=== PATIENT | male | born 1945 | race Caucasian/White ===

== ENCOUNTER 2024-04-08 06:39 | Observation (INO) ==
--- NOTE | 2024-04-01 14:57 | Anesthesiology Consultation ---
Date of Service April 01, 2024 Assessment & Plan (1) Encounter for pre-operative examination: - Infectious disease screening: Per assessment on 04/01/24- No known recent infectious disease contacts or current infectious disease symptoms. Patient at [facility]. Will need preop Covid testing per protocol (will need to order DOS if not done prior per protocol). - Outpatient joint assessment: Pt currently scheduled for inpatient pathway. If surgeon requests review for outpatient joint pathway, patient is not recommended candidate for outpatient joint program from anesthesia standpoint based on available information. - Cardiology visit (03/19/24): "Mr. Pizano is a 78-year-old male with a history of GERD, BPH, Rhinitis, and Osteoarthritis who presents today for Preoperative Cardiac Evaluation. He is scheduled undergo a Right Total Hip Arthroplasty with Dr. Cruz on 04/08/24. Patient denies any prior cardiac history or prior cardiac events. Up until 2 months ago he was routinely walking around the nursing home yard for exercise and this will be followed by between 300 to 350 pushups (done in sets). He has been bothered by his right groin and hip pain over the past at least 5 years, but he was able to stay very active up until a couple of months ago. Patient has not experienced any limiting cardiopulmonary symptoms at any time. Patient has not experienced any angina pectoris or anginal equivalent symptoms, overt signs or symptoms heart failure, nor has he had any symptoms suggestive of dysrhythmia. He does not experience claudication with his day-to-day activities. He has never had any focal neurologic symptoms suggestive of stroke or mini stroke.. Based on his functional status up until 2 months ago without limiting cardiopulmonary symptoms, normal EKG tracing, and no prior cardiac history -- patient is an acceptable surgical risk to proceed with surgery as planned. There is no need for further cardiac or ischemic workup at this time." Chart Review Chart Review: Acceptable Risk for Surgery (pending evaluation DOS) and Patient NOT seen in Pre Admission Testing History Surgery Operation Date: 04/08/24 11:10 Proposed Procedures p Left Total Hip Arthroplasty - Sandoval Cruz MD Height/Weight Height: 5 ft 10 in Weight: 73.028 kg Allergies Allergy/AdvReac Type Severity Reaction Status Date / Time No Known Drug Allergies Allergy Verified 03/19/24 13:13 Medications Home Medications Medication Instructions Recorded Confirmed Last Taken montelukast 10 mg tablet 10 mg PO QPM 03/18/24 04/01/24 Unknown (Singulair) omeprazole 20 mg tablet,delayed 20 mg PO DAILY 03/18/24 04/01/24 Unknown release tamsulosin 0.4 mg capsule 0.4 mg PO DAILY 03/18/24 04/01/24 Unknown diclofenac sodium 100 mg 100 mg PO BID PRN Pain 04/01/24 04/01/24 Unknown tablet,extended release 24 hr lidocaine 5 % topical ointment 1 applic topical BID PRN Pain 04/01/24 04/01/24 Unknown sulfamethoxazole 800 1 tab PO BID 04/01/24 04/01/24 Unknown mg-trimethoprim 160 mg tablet (Bactrim DS) Past Medical History Medical History Allergic rhinitis BPH (benign prostatic hyperplasia) Eczema GERD (gastroesophageal reflux disease) Inmate in correctional facility [facility] Osteoarthritis Pain in right hip Past Surgical History Surgical History Surgical history unknown Social History Smoking Status: Unknown if ever smoked Hx Alcohol Use: No (unknown) Hx Substance Use: No substance use type: unknown Testing Laboratory Results 03/01/24 WBC 7.29 H/H 11.3/33.9 PLATELETS 196 SODIUM 140 POTASSIUM 3.8 CHLORIDE 105 CO2 32 BUN 34 CREATININE 1.09 GLUCOSE 84 PT 11.1 PTT 29.8 INR 1.00 Electrocardiogram Date: 03/19/24 Findings: + NSR @ (60) Chest X-Ray Date: 03/01/24 Findings: + NAD
[~2024-04-08 06:39] MED LIST: ROPIVACAINE 0.5% 5 MG/ML 30 ML VIAL ONE
[2024-04-08] MEDS: CeleBREX 200 MG CAP PO SCH (07:31)
[2024-04-08] MEDS: traMADol HCL 50 MG TABLET PO SCH (07:31)
[2024-04-08] MEDS: Scopolamine 1 MG TDSY TD SCH (07:31)
[2024-04-08] MEDS: FAMOTIDINE 20 MG TAB PO SCH (07:31)
[2024-04-08] MEDS: LR 500ML BOLUS, THEN 15ML/HR IV SCH (07:31)
[2024-04-08] MEDS: ACETAMINOPHEN 500 MG TAB PO SCH ×2 (07:31→14:49)
[2024-04-08] MEDS: LR 60ML/HR IV SCH (07:32)
[2024-04-08] MEDS ORDERED: MIDAZOLAM HCL 1 MG/ML 2ML VIAL ONE (07:42)
[2024-04-08] MEDS ORDERED: fentaNYL citrate PF 100 MCG/2 ML VIAL ONE (07:42)
[2024-04-08] MEDS ORDERED: PROPOFOL IV EMULSION 10 MG/ML 20 ML VIAL IV ONE (07:44)
[2024-04-08] MEDS: dexAMETHasone**PF** 10 MG/ML VIAL IV SCH (07:47)
--- NOTE | 2024-04-08 08:16 | Anesthesiology Consultation ---
Date of Service April 08, 2024 Assessment & Plan (1) Encounter for pre-operative examination: Chart Review Chart Review: Acceptable Risk for Surgery History Surgery Operation Date: 04/08/24 09:05 Proposed Procedures p Right Total Hip Arthroplasty - Sandoval Cruz MD Height/Weight Height: 5 ft 10 in Weight: 73.028 kg Allergies Allergy/AdvReac Type Severity Reaction Status Date / Time No Known Drug Allergies Allergy Verified 04/08/24 07:03 Medications Home Medications Medication Instructions Recorded Confirmed Last Taken montelukast 10 mg tablet 10 mg PO QPM 03/18/24 04/08/24 Unknown (Singulair) omeprazole 20 mg tablet,delayed 20 mg PO DAILY 03/18/24 04/08/24 04/06/24 20:00 release tamsulosin 0.4 mg capsule 0.4 mg PO DAILY 03/18/24 04/08/24 04/06/24 diclofenac sodium 100 mg 100 mg PO BID PRN Pain 04/01/24 04/08/24 03/25/24 tablet,extended release 24 hr lidocaine 5 % topical ointment 1 applic topical BID PRN Pain 04/01/24 04/08/24 04/06/24 Active Medications Generic Name Dose Route Start Last Admin Trade Name Freq PRN Reason Stop Dose Admin Acetaminophen 1,000 mg 04/08/24 06:00 04/08/24 07:31 Acetaminophen 500 Mg Tab PO 04/08/24 18:00 1,000 mg PREOP PINA Administration Celecoxib 200 mg 04/08/24 06:00 04/08/24 07:31 Celebrex 200 Mg Cap PO 04/08/24 18:00 200 mg PREOP PINA Administration Dexamethasone Sodium Phosphate 10 mg 04/08/24 06:00 04/08/24 07:47 DexamethasonePf 10 Mg/Ml Vial IV 04/08/24 18:00 10 mg PREOP PINA Administration Famotidine 20 mg 04/08/24 06:00 04/08/24 07:31 Famotidine 20 Mg Tab PO 04/08/24 18:00 20 mg PREOP PINA Administration Lactated Ringer's 1,000 mls @ 15 mls/hr 04/08/24 06:00 04/08/24 07:49 Lr IV 04/08/24 18:00 0 mls/hr .Q24H PINA Infusion Lactated Ringer's 1,000 mls @ 60 mls/hr 04/08/24 06:00 04/08/24 07:32 Lr IV 04/08/24 22:39 Not Given .[id number] PINA Scopolamine 1 patch 04/08/24 06:00 04/08/24 07:31 Scopolamine 1 Mg Tdsy TD 04/08/24 18:00 1 patch PREOP PINA Administration Tramadol HCl 50 mg 04/08/24 06:00 04/08/24 07:31 Tramadol Hcl 50 Mg Tablet PO 04/08/24 18:00 50 mg PREOP PINA Administration NPO Date Last Intake of Fluids: 04/07/24 Time Last Intake of Fluids: 17:00 Date Last Intake of Solids: 04/07/24 Time Last Intake of Solids: 17:00 Past Medical History Medical History GERD (gastroesophageal reflux disease) Pain in right hip Allergic rhinitis Inmate in correctional facility [facility] Osteoarthritis Eczema BPH (benign prostatic hyperplasia) Past Surgical History Surgical History Hx of tonsillectomy History of nasal surgery Surgical history unknown Social History Smoking Status: Unknown if ever smoked Hx Alcohol Use: No (unknown) Hx Substance Use: No substance use type: unknown Physical Exam Vital Signs Last Vital Signs Temp 36.8 C 04/08/24 07:06 Pulse 62 04/08/24 07:06 Resp 18 04/08/24 07:06 BP 140/72 04/08/24 07:06 Pulse Ox 95 04/08/24 07:06 O2 Del Method Room Air 04/08/24 07:06 Testing Laboratory Results Blood Type O Positive 04/08/24 07:02 Antibody Screen NEGATIVE 04/08/24 07:02 Hb 11.3 Plt 196 K 3.8 Creat 1.09 Electrocardiogram Date: 03/19/24 Findings: + NSR @ (60)
[2024-04-08] MEDS ORDERED: KETOROLAC 30 MG/ML VIAL IV PRN (08:20)
[2024-04-08] MEDS ORDERED: ONDANSETRON INJ 2 MG/ML 2 ML VIAL IV PRN ×2 (08:20→10:59)
[2024-04-08] MEDS ORDERED: ATROPINE SULFATE 0.1 MG/ML 10ML SYR IV PRN (08:20)
[2024-04-08] MEDS ORDERED: ePHEDrine sulfate 50 MG/ML AMP IV PRN (08:20)
--- NOTE | 2024-04-08 08:34 | History & Physical Bridge Note ---
Date of Service April 08, 2024 History & Physical Bridge Note I have examined the patient, reviewed the History & Physical and in the interval since the performance of the History & Physical I have noted the following changes of clinical significance: no changes noted
[2024-04-08] MEDS: TRANEXAMIC ACID 1,000 MG **IV Pre-op IV SCH (08:54)
[2024-04-08] MEDS: ceFAZolin 2000MG 2,000 MG/15 ML SYR IV SCH ×2 (09:05→16:53)
[2024-04-08] MEDS ORDERED: LIDOCAINE 2% 2 ML VIAL/AMP(20MG/ML) INFIL ONE (09:27)
[2024-04-08] MEDS ORDERED: ePHEDrine sulfate 50 MG/ML AMP ONE (09:33)
[2024-04-08] MEDS ORDERED: WATER, STERILE FOR INJ 10 ML VIAL ONE (09:34)
[2024-04-08] MEDS ORDERED: PHENYLEPHRINE 100MCG/ML 5ML SYR ONE (09:36)
[2024-04-08] MEDS: ORTHO JOINT ANESTHETIC ONE (09:48)
[2024-04-08] MEDS: TRANEXAMIC ACID 1,000 MG **IV Intra-op IV SCH (10:22)
[2024-04-08] MEDS: ROPIV 0.5% 246mg, Ketorolac 30mg, EPINEPHrine 0.5mg in NSS INFIL SCH (10:30)
--- NOTE | 2024-04-08 10:48 | Operative Report ---
Post Operative Report Pre & Post Diagnosis Operation Date: 04/08/24 09:05 Pre-Op Diagnosis: Right Hip Osteoarthritis Post-Op Diagnosis: Right Hip Osteoarthritis I identified the patient and participated in the time-out.: Yes Procedure Operation Date: 04/08/24 09:05 Actual Procedures p Right Total Hip Arthroplasty(Right) - Sandoval Cruz MD Surgeon Sandoval Cruz MD Supervisor Floor Assembly Lanre Dunbar DO and TILA Branham PA-C. Estimated Blood Loss 50 Findings Consistent with Post-Op Diagnosis Specimens Right femoral head Anesthesia Type Spinal MAC Complications The tip (about 1.5 cm) of a drill bit broke in the greater trochanter next to the femoral implant. The hip was carefully inspected to ensure that the broken drill bit tip was completely located within the bone. This was confirmed with inspection, palpation, and an intraoperative x-ray. This is unlikely to alter the patient's postoperative recovery. No changes to the standard postoperative instructions. Indications 78-year-old male with right hip osteoarthritis refractory to conservative m anagement. X-rays demonstrate [id number] disease with subchondral sclerosis and cyst formation. I had a long discussion with him about the risks and benefits of surgery, alternatives to surgery, and expected outcomes. After reviewing all these he elected to proceed with surgery. All questions were answered. Informed consent was signed. Description of Procedure Patient was identified in the preoperative holding area where the surgical site, right hip, was marked. A spinal anesthetic was placed, then the patient was brought back to the main operating room, placed in the operating table and moved into the lateral decubitus position. Axillary roll was placed. All bony prominences were padded. Perioperative antibiotics and tranexamic acid 1 gram IV were administered. The operative extremity was prepped and draped in the normal sterile fashion. Prior to incision a multidisciplinary timeout was called. All in the room were in agreement. We began by making an incision for a posterior approach to the hip. We dissected down through subcutaneous tissues to the level of the fascia. The fascia was incised in line with the incision. Charnley bow was placed. Fatty tissue was reflected posteriorly off the back of the greater trochanter to expose the piriformis and short external rotators of the hip. Quadratus femoris was taken off the femur subperiosteally. The piriformis and short external rotators were dissected off the posterior aspect of the hip. A box cut was made in the capsule. Inferior hip capsule was released off the femur. The femoral head was dislocated. The femoral neck cut was made at our preoperative template. The acetabulum was then exposed. The labrum was sharply excised. Contents of the cotyloid fossa were removed with electrocautery. We then began reaming at a size 8 mm less than our preoperative template. We reamed up by 1 [address] the way up to a size 58 mm cup. This gave us good bleeding cancellus bone circumferentially. The acetabulum was then irrigated out and dried. The real [place] Gription cup was then impacted down into position with 45 degrees of lateral opening and 25 degrees of anteversion. A single cancellous bone screw was placed up into the ilium. Excellent fixation was obtained. A trial liner for a 36 mm femoral head was then placed. Next we turned our attention to the femur. The lateral neck was removed with a box osteotome. Intramedullary guide was used to establish the intramedullary canal. We then broached all the way up to a size 7. We began trialing with a high offset neck and a +1.5 head. Hip was reduced. Leg lengths were symmetric. The hip was stable in extension and external rotation, and stable in the sleeper position. At 90 degrees of hip flexion the hip could be internally rotated 50 degrees before levering out of the cup. I was very happy with the stability exam. Therefore the hip was dislocated and the femoral trial was removed. The acetabulum was re-exposed, and the trial liner was removed. Saulsbury hole eliminator screw was placed. An Altrx polyethylene liner for a 36 mm femoral head was then impacted into the shell. The locking mechanism was checked to ensure that it had engaged which it had. The femur was re-exposed. The femoral canal was irrigated and dried. The real Actis femoral stem was opened up. This was impacted down into position. The femoral head was opened up and gently impacted down onto the trunnion. The hip was atraumatically reduced. Another 1 gram of IV tranexamic acid was started prior to closure. The wound was irrigated out with sterile Betadine solution. The periarticular injection cocktail was then placed. The short external rotators, piriformis, and transport corps officer ior capsule were repaired through drill holes in the greater trochanter using #2 Vicryl. While drilling the holes through the greater trochanter the tip of the drill bit broke off as it contacted the shoulder of the femoral stem. The hip was atraumatically dislocated when carefully inspected all around the greater trochanter and proximal femur and were unable to visualize or palpate the drill bit. We expected that the tip of the drill bit had broken off within the bone. An AP pelvis x-ray was obtained which confirmed the intraosseous location of the tip of the drill bit in the greater trochanter. This was unlikely to change the patient's postoperative course as the tip drill bit and the bone should not bother him. No changes to routine postoperative instructions. Next, the fascia was run with a looped #1 PDS. The subcutaneous layer was closed with #1 PDS. The dermal layer was closed with 2-0 Vicryl. Zip line was used for the skin followed by a Silverlon dressing. A compressive dressing was then placed. The patient was then rolled supine. Leg lengths were rechecked and were symmetric. An abduction pillow was placed. Sedation was lifted and the patient was transferred to the recovery room in stable condition. Summary of implants: Depuy [place] Gription Acetabular Shell Sector Cup, 58 mm outer diameter [place] Cancellous bone screw, 6.5 x 30 mm Saulsbury hole eliminator [place] Altrx Polyethylene Acetabular Liner, Neutral, with a 36 mm inner diameter DePuy Actis collared cementless Femoral stem, 12/14 taper, size 7 high offset 36 mm ceramic femoral head with +1.5 offset Postoperative course: Patient will be admitted overnight from the recovery room. Patient will be weightbearing as tolerated with posterior hip precautions. Aspirin for DVT prophylaxis I attest to the content of the Intraoperative Record and any orders documented therein. Any exceptions are noted below.
--- NOTE | 2024-04-08 10:49 | XRay Report ---
XR pelvis 1-2V routine HISTORY: 78 years-old Male INTRAOPERATIVE X-RAY right hip arthroplasty COMPARISON: Pelvis radiograph 03/17/2024 TECHNIQUE: Crosstable lateral view of the pelvis. FINDINGS: Right hip arthroplasty demonstrates satisfactory alignment. Expected postoperative soft tissue swelli ng and deep tissue air. Mild left hip osteoarthritis. No acute fracture or dislocation identified. A small linear metallic density focus projects over the right greater trochanter. IMPRESSION: Satisfactory alignment of the right hip arthroplasty. ACT 112: Negative or not required by law. The above report was generated using voice recognition software. It may contain grammatical, syntax o r spelling errors. Electronically signed by: Azeem Sawyer M.D. 04/08/2024 10:48 AM
[2024-04-08] MEDS ORDERED: bisacodyL 10 MG SUPP PR PRN (10:59)
[2024-04-08] MEDS ORDERED: ALUMINUM/MAGNESIUM SUSP 30 ML UDC PO PRN (10:59)
[2024-04-08] MEDS ORDERED: METOCLOPRAMIDE HCL INJ 5 MG/ML 2 ML VIAL IV PRN (10:59)
[2024-04-08] MEDS ORDERED: diphenhydrAMINE 50 MG/ML VIAL IV PRN (10:59)
[2024-04-08] MEDS ORDERED: MAGNESIUM HYDROXIDE SUSP 30 ML UDC PO PRN (10:59)
[2024-04-08] MEDS ORDERED: NALOXONE HCL 0.4 MG/1 ML VIAL/CARP IV PRN (10:59)
[2024-04-08] MEDS ORDERED: oxyCODONE HCL IR 5 MG TAB (IMMEDIATE RELEASE) PO PRN (10:59)
[2024-04-08] MEDS ORDERED: TAMSULOSIN HCL 0.4 MG CAP PO PRN (10:59)
--- NOTE | 2024-04-08 10:59 | Operative Report ---
Post Operative Report Pre & Post Diagnosis Operation Date: 04/08/24 09:05 Pre-Op Diagnosis: Right Hip Osteoarthritis Post-Op Diagnosis: Right Hip Osteoarthritis I identified the patient and participated in the time-out.: Yes Procedure Operation Date: 04/08/24 09:05 Actual Procedures p Right Total Hip Arthroplasty(Right) - Sandoval Cruz MD Surgeon Sandoval Cruz MD Medical Transcription Supervisor Lanre Dunbar DO and TILA Branham PA-C. Estimated Blood Loss 50 Findings Consistent with Post-Op Diagnosis Specimens Femoral head Description of Procedure I was present during the entire case assisting with positioning, prepping, draping, wound retraction, wound closure, dressing and abduction pillow placement. Fellow also present. I served as an extra set of hands during the case. Please see Dr. Cruz procedure note for specifics of the case. I attest to the content of the Intraoperative Record and any orders documented therein. Any exceptions are noted below.
[2024-04-08] MEDS ORDERED: DICLOFENAC SODIUM 100 MG PO PRN (11:01)
--- NOTE | 2024-04-08 11:02 | Operative Report ---
Post Operative Report Pre & Post Diagnosis Operation Date: 04/08/24 09:05 Pre-Op Diagnosis: Right Hip Osteoarthritis Post-Op Diagnosis: Right Hip Osteoarthritis I identified the patient and participated in the time-out.: Yes Procedure Operation Date: 04/08/24 09:05 Actual Procedures p Right Total Hip Arthroplasty(Right) - Sandoval Cruz MD Surgeon Sandoval Cruz MD Stonework Supervisor Lanre Dunbar DO and TILA Branham PA-C. Estimated Blood Loss 50 Findings Consistent with Post-Op Diagnosis Specimens Femoral head Description of Procedure Patient was brought to the operative suite where he underwent sedation per anesthesia. He was placed in left lateral decubitus position. The right lower extremity was prepped and draped in the usual sterile fashion. A surgical timeout was performed. The patient underwent a right total hip arthroplasty; please see Dr. Cruz's operative report for full details. I was present and assisted with patient positioning, limb positioning, soft tissue retraction, hardware placement, wound closure, postoperative dressing placement. The patient was awakened and taken to the recovery room in stable condition. I attest to the content of the Intraoperative Record and any orders documented therein. Any exceptions are noted below.
--- NOTE | 2024-04-08 11:48 | XRay Report ---
XR pelvis 1-2V routine HISTORY: 78 years-old Male In PACU - Post Surgical COMPARISON: Pelvis radiograph of same day at 10:25 AM TECHNIQUE: AP view of the pelvis FINDINGS: Right hip arthroplasty demonstrates satisfactory alignment. Expected postoperative soft tissue swelli ng and deep tissue air. Mild left hip osteoarthritis. No acute fracture or dislocation identified. 6 mm linear metallic density focus projects over the right greater trochanter. IMPRESSION: 1. Satisfactory alignment of the right hip arthroplasty. 2. Indeterminate 6 mm metallic density focus projects over the greater trochanter. ACT 112: Negative or not required by law. The above report was generated using voice recognition software. It may contain grammatical, syntax o r spelling errors. Electronically signed by: Azeem Sawyer M.D. 04/08/2024 11:46 AM
[2024-04-08] MEDS: HYDROmorphone INJ 1 MG/ML SYRINGE IV PRN (12:07)
[2024-04-08] MEDS: KETOROLAC TROMETHAMINE 15 MG/ML VIAL IV SCH (13:01)
--- NOTE | 2024-04-08 13:45 | Anesthesiology Progress Note ---
Date of Service April 08, 2024 Anesthesia Post Procedure Vital Signs Vital Signs: Temp Pulse Pulse Resp BP BP Pulse Ox 04/08/24 13:04 36.3 C L 73 16 124/56 L 96 04/08/24 12:48 36.5 C 77 16 124/54 L 94 04/08/24 12:10 36.4 C L 68 15 116/55 L 95 04/08/24 11:55 66 17 115/52 L 95 04/08/24 11:40 68 17 109/54 L 95 04/08/24 11:25 67 17 117/53 L 96 04/08/24 11:15 36.2 C L 68 18 117/54 L 96 04/08/24 11:05 69 18 112/51 L 98 04/08/24 10:56 36.2 C L 66 18 111/52 L 95 04/08/24 07:06 36.8 C 62 18 140/72 95 O2 Del Method O2 Flow Rate 04/08/24 13:04 Nasal Cannula 2 04/08/24 12:48 Nasal Cannula 04/08/24 12:10 Nasal Cannula 2 04/08/24 11:55 Room Air 04/08/24 11:40 Room Air 04/08/24 11:25 Room Air 04/08/24 11:15 Room Air 04/08/24 11:05 Oxymask 5 04/08/24 10:56 Oxymask 5 04/08/24 07:06 Room Air Pain Intensity Right Hip: Pain Intensity: 4 Transfer of Care Handoff Completed per policy Notes Mental Status: alert / awake / arousable Patient Amnestic to Procedure: Yes Nausea / Vomiting: adequately controlled Pain: adequately controlled Airway Patency, RR, SpO2: stable & adequate BP & HR: stable & adequate Hydration State: stable & adequate Neuraxial Anesthesia: was administered and sensory block is resolving Anesthetic Complications: no major complications apparent
[2024-04-08] MEDS: Scopolamine CHECK PATCH PLACEMENT SCH (16:49)
[2024-04-08] MEDS: DOCUSATE SODIUM 100 MG CAP PO SCH (21:34)
[2024-04-08] MEDS: MONTELUKAST SODIUM 10 MG TABLET PO SCH (21:34)
[2024-04-08] MEDS: SENNA 8.6 MG TAB PO SCH (21:34)
[2024-04-08 23:24] VITALS: RESP 16
--- OUTSIDE RECORDS SUMMARY | 2024-04-09 01:34 | External Medical Summary | Continuity of Care Document ---
Author Name Unknown Organization [facility] [address] [id number] Address [facility] [place], [place] [id number] Encounter [facility] FINNBR [id number] Date(s): 03/17/24 - 03/17/24 [facility] [address] [facility] [address] [facility] [address] [place] [id number] Encounter Diagnosis Preop examination(Discharge Diagnosis) - 03/17/24 Osteoarthritis of right hip(Discharge Diagnosis) - 03/17/24 Discharge Disposition: Home or Self Care Attending Physician: ANA Branham Dennis Referring Physician: MD Nancy, Sandoval Casper Allergies, Adverse Reactions, Alerts No Known Allergies Medications diclofenac Start: 10/10/23 2:10:00 PM EDT Start Date: 10/10/23 Status: Ordered Flomax Start: 03/17/24 9:53:00 AM EDT Start Date: 03/17/24 Status: Ordered montelukast 10 mg oral tablet Start: 04/25/22 10:41:00 AM EST, 1 tab, PO, qPM Start Date: 04/25/22 Status: Ordered omeprazole 20 mg oral delayed release capsule Start: 04/25/22 10:41:00 AM EST, 1 cap, PO, Daily Start Date: 04/25/22 Status: Ordered Singulair Start: 03/17/24 9:53:00 AM EDT Start Date: 03/17/24 Status: Ordered tamsulosin 0.4 mg oral capsule Start: 04/25/22 10:41:00 AM EST, 1 cap, PO, Daily Start Date: 04/25/22 Status: Ordered Mental Status 03/17/24 Barriers to Learning one year None evide nt Mandatory Health Literacy Documentation Yes Health Literacy Communication Barriers N ever Primary Language Maldivian Problem List Condition Confirmation Course Effective Dates Status Health St atus Informant BPH without urinary obstruction Confirmed Active Eczema Confirmed Active GERD without esophagitis Confirmed Active Encounter for exam following cancer surgery Confirmed Active History of skin cancer Confirmed Active Rhinitis Confirmed Active Seborrheic keratosis Confirmed Active Diagnosis Diagnosis Type Effective Dates Health Status Clinical Service Informant Osteoarthritis of right hip Discharge Diagnosis 03/17/24 Preop examination Discharge Diagnosis 03/17/24 Vital Signs Most recent to oldest [Reference Range]: 1 Height 177.5 cm (03/17/24 9:54 AM) Patient Weight 76.6 kg (03/17/24 9:54 AM) Body Mass Index 24.31 kg/m2 (03/17/24 9:54 AM) Heart Rate 65 bpm (03/17/24 9:54 AM) Blood Pressure 136/70mmHg (03/17/24 9:54 AM) Cuff Pulse Pressure 66 mmHg (03/17/24 9:54 AM) Social History Social History Type Response Smoking Status Never smoked cigaret jaz Sex Male Sex Representation Male (finding) Pre-OP H & P * ANA Branham, Sharath: PERFORM Event Display: Pre-OP H & P Authored Date: [id number] PRE-OPERATIVE HISTORY AND PHYSICAL Name: JUDY PATEL Patient Number: [id number] : 1945 Date of Service: 03/17/2024 PRE-OP Diagnosis: Right hip osteoarthritis Planned Procedure: Right Total Hip Arthroplasty Chief Complaint: Right hip pain History of Present Illness (including history relevant to procedure): This 78-year-old male inmate from [facility] presents to the clinic today for his preoperative history and physical. Patient complains of a 5 to 6-year history of significant right hip pain that is localized to his groin and lateral hip. He states his severely affecting his ability to ambulate in a normal fashion. He feels that the range of motion of his hip is very limited as well. Patient states that he is gait abnormality is starting to cause pain in his left leg. He states that he manages his pain with diclofenac sodium. Patient is electing to proceed with surgical intervention at this time. Review Of Systems: 12 point review of systems is performed and is unremarkable except for those things stated in the HPI and past medical history. Past Medical History: Problems: Seborrheic keratosis Encounter for exam following cancer surgery History of skin cancer BPH without urinary obstruction Eczema GERD without esophagitis Rhinitis Procedure History Procedure Procedure Date Comments Tonsillectomy Allergies and Sensitivities: NKA No Known Medication Allergies Current Home Meds: (Last Updated 03/17 09:53) diclofenac montelukast (Singulair) montelukast (montelukast 10 mg oral tablet) 10 mg PO qPM omeprazole (omeprazole 20 mg oral delayed release capsule) 20 mg PO Daily tamSULOsin (tamsulosin 0.4 mg oral capsule) 0.4 mg PO Daily tamsulosin (Flomax) Vitals: Last Updated 03/17/24 09:54 Weights: Last Updated 03/17/24:54 Date Temp Pulse BP RR SpO2 FIO2 Date Wt(kg) Wt(lb) 03/17 09: 65 136/70 98 03/17 76.6 169 03/17 09: 76.6 169 24 Hr Tmax: No Data Available Initial Wt: 03/17 76.6 kg 169 lb Physical Exam: (relevant to the procedure, including heart and lung evaluation) General: Alert and oriented x 3 with proper grooming and hygiene Eyes: Pupils are equal reactive to light with accommodation. Extraocular movements are intact Throat: Posterior oropharynx is clear with absence of edema, erythema or exudate Cardiac: Regular rate and rhythm with no murmurs or gallops appreciated Lungs: Clear to auscultation throughout with no wheezing, rales or rhonchi Abdomen: Nonobese, nondistended, nontender with NABS Extremities: Right hip flexion is limited to 100 degrees, internal rotation to 0 degrees external rotation to 30 degrees. Straight leg raise test causes discomfort in the groin. Scour and impingementtests are both positive. Patient walks with a significant antalgic gait. Neuro: Cranial nerves II through XII are intact no motor or sensory deficit Skin: Normal in appearance with no open skin areas or discharge Studies (relevant to the procedure): 3(AP pelvis, cross table lateral, and false profile) views of theright hip show [id number] arthritis severe with subchondral cysts and sclerosis. No fractures are visible. Plan: Patient is scheduled to undergo this procedure at the [facility] with a 23-hour observation admission with Dr. Cruz on March. Risks and complications of the procedure such as: Infection, bleeding, pain, scarring, nerve blood vessel damage, weakness, wound problems, stiffness, incomplete relief of symptoms, hardware failure, hardware loosening, wear, fracture, tendon or ligament injury, dislocation, leg length inequality, blood clots, Embolism,heart attack, stroke and were explained to the patient at his visit today. Informed consent to perform the procedure was obtained. Patient states that he has obtained a CBC with differential, complete metabolic panel, PT/INR, blood type and screen, urinalysis, urine culture and sensitivity, EKG, chest x-ray and a nasal culture for MRSA at the present. Patient will also need preoperative medical clearance from their primary care provider and jewish thought professor. Patient states that he will reviewthe exercises in the packet provided and I did provide him with an order to do physical therapy 1 atherapist is available 1 time per month at the [facility]. Patient will need a walker, raised toilet seat, shower chair and a hip kit. During today's visit we reviewed the total hip packet as well as precautions. We discussed discharge planning from the hospital. I advised the patient that upon discharge from hospital we will prescribe a narcotic pain medication and anti-inflammatory. Patient will also be on an 81 mg aspirin twice daily for blood clot prevention. Patient will be scheduled for2-week postoperative follow-up visit with myself on April 21. This chart was completed utilizing [employer] voice recognition software. Grammatical errors,random word insertions, pronoun errors, and in complete sentences are an occasional consequence of the system. Any questions or concerns about the content, text, or information contained within the body of this dictation should be addressed directly to the physician for clarification. Electronic Signature on File Electronically Reviewed/Signed by: Sharath Branham PA-C Author Signature Dt/Tm:03/17/2024 03:21 PM Division of Sports Medicine Electronically Reviewed/Signed by: MD Maxi Carrera Signature Dt/Tm: 03/18/2024 10:53AM Division of Sports Medicine [place]
[2024-04-09 06:43] LABS: Basophils # (auto) 0.03 K/uL (0.00-0.20); Basophils % (auto) 0.3 %; Hematocrit (blood only) 27.6 % (42.0-52.0); Hemoglobin 9.3 g/dl (14.0-18.0); Immature Granulocytes # (auto) 0.05 K/uL (0.01-0.20); Immature Granulocytes % (auto) 0.5 %; Lymphocytes # (auto) 1.25 K/uL (1.20-3.40); Lymphocytes % (auto) 11.9 %; Mean Corpuscular Hemoglobin 32.3 pg (25.0-34.0); Mean Corpuscular Hgb Conc 33.7 g/dL (32.0-36.0); Mean Corpuscular Volume 95.8 fL (80.0-100.0); Mean Platelet Volume 10.2 fL (9.4-12.4); Monocytes # (auto) 1.17 K/uL (0.11-0.59); Monocytes % (auto) 11.2 %; Neutrophils # (auto) 7.99 K/uL (1.40-6.50); Neutrophils % (auto) 76.1 %; Platelet Count 202 K/uL (130-400); RDW Coefficient of Variation 12.1 % (11.5-14.5); RDW Standard Deviation 42.5 fL (36.4-46.3); Red Blood Count 2.88 M/uL (4.70-6.10); White Blood Count 10.49 K/ul (4.8-10.8)
[2024-04-09 06:58] LABS: Calcium 8.8 mg/dl (8.6-10.3); Creatinine Clr Calc Pharmacy 41.8 ml/min; Potassium 4.9 mmol/L (3.5-5.1)
[2024-04-09 07:30] VITALS: PULSE 58; TEMP 97.7; O2SAT 95
[2024-04-09] MEDS: dexAMETHasone 4 MG TAB PO SCH (09:02)
[2024-04-09] MEDS: PANTOprazole 40 MG TAB PO SCH (09:03)
[2024-04-09] MEDS: ASPIRIN 81 MG ECTAB PO SCH (09:03)
[2024-04-09] MEDS: MULTIVITAMIN TAB PO SCH (09:03)
[2024-04-09] MEDS: TAMSULOSIN HCL 0.4 MG CAP PO SCH (09:03)
--- NOTE | 2024-04-09 09:48 | Orthopedic Progress Note ---
Date of Service April 09, 2024 Assessment & Plan (1) S/P total hip arthroplasty: Plan: Total hip precautions were reviewed PT/OT Ice with easy wrap Pain control with p.o. medication DVT prophylaxis with aspirin and JUANCHO stockings Abduction pillow use x 6 weeks Keep Silverlon dressing in place until follow-up Plan is to discharge back to the correctional facility later this morning. Patient will most likely be [facility] in the [facility] until his 2-week follow-up Follow-up as scheduled If medical staff at the present has questions they should contact our clinic at [phone] Admission and Anticipated Discharge Date Admission Date: April 08, 2024 Supervising Physician Co-Signing Physician Notes Agree with above note. I did see the patient yesterday evening after surgery to discuss the intraoperative complication of broken drill bit tip in his greater trochanter. I showed him the x-rays and told him this should not affect his post-operative recovery. Subjective This 78-year-old male inmate from [facility] is day 1 status post right total hip arthroplasty. He states that he has no pain. He states that he is able to move his leg without difficulty. States he does not remember anything about the surgery yesterday. Currently he denies chest pain, shortness of breath, fever, chills, sweats, nausea, vomiting, diarrhea or numbness or tingling in his right lower extremity. Review of Systems Review of Systems: All systems reviewed & are unremarkable except as noted in Subjective Physical Exam Physical Exam: Right hip: Outer dressing was removed. Silverlon is clean dry and intact and left in place. Patient is able to easily perform active straight leg raise te st. He is able to actively dorsi and plantarflex his foot without issue. His peripheral pulses are 2+. He tolerates light passive hip flexion to 90 degrees and has no discomfort with light passive internal or external hip rotation. He is neurovascularly intact. His quad strength is 4+ out of 5 Results & Data Vital Signs (Past 12 Hours) Vital Signs Temp Pulse Resp BP Pulse Ox O2 Del Method 04/09/24 07:29 36.5 C 58 L 16 151/66 H 95 Room Air 04/09/24 03:47 36.4 C L 60 16 121/60 96 Room Air 04/08/24 23:23 36.6 C 56 L 16 151/68 H 97 Room Air Diagnostic Findings Laboratory Results WBC 10.49 K/ul (4.8-10.8) 04/09/24 05:48 RBC 2.88 M/uL (4.70-6.10) L 04/09/24 05:48 Hgb 9.3 g/dl (14.0-18.0) L 04/09/24 05:48 Hct 27.6 % (42.0-52.0) L 04/09/24 05:48 MCV 95.8 fL (80.0-100.0) 04/09/24 05:48 MCH 32.3 pg (25.0-34.0) 04/09/24 05:48 MCHC 33.7 g/dL (32.0-36.0) 04/09/24 05:48 RDW Std Deviation 42.5 fL (36.4-46.3) 04/09/24 05:48 RDW Coeff of Miles 12.1 % (11.5-14.5) 04/09/24 05:48 Plt Count 202 K/uL (130-400) 04/09/24 05:48 MPV 10.2 fL (9.4-12.4) 04/09/24 05:48 Immature Gran % (Auto) 0.5 % 04/09/24 05:48 Neut % (Auto) 76.1 % 04/09/24 05:48 Lymph % (Auto) 11.9 % 04/09/24 05:48 Howell % (Auto) 11.2 % 04/09/24 05:48 Eos % (Auto) 0.0 % 04/09/24 05:48 Baso % (Auto) 0.3 % 04/09/24 05:48 Neut # (Auto) 7.99 K/uL (1.40-6.50) H 04/09/24 05:48 Lymph # (Auto) 1.25 K/uL (1.20-3.40) 04/09/24 05:48 Howell # (Auto) 1.17 K/uL (0.11-0.59) H 04/09/24 05:48 Eos # (Auto) 0.00 K/uL (0.00-0.50) 04/09/24 05:48 Baso # (Auto) 0.03 K/uL (0.00-0.20) 04/09/24 05:48 Immature Gran # (Auto) 0.05 K/uL (0.01-0.20) 04/09/24 05:48 Sodium 137 mmol/L (136-145) 04/09/24 05:48 Potassium 4.9 mmol/L (3.5-5.1) 04/09/24 05:48 Chloride 104 mmol/L (98-107) 04/09/24 05:48 Carbon Dioxide 27 mmol/L (21-32) 04/09/24 05:48 Anion Gap 6 (3-11) 04/09/24 05:48 BUN 40 mg/dl (6-23) H 04/09/24 05:48 Creatinine 1.48 mg/dl (0.6-1.4) H 04/09/24 05:48 Est Cr Clr Drug Dosing 41.8 ml/min 04/09/24 05:48 eGFR 47.83 04/09/24 05:48 BUN/Creatinine Ratio 27.0 (10-20) H 04/09/24 05:48 Glucose 101 mg/dl (70-99(Fasting)) H 04/09/24 05:48 Calcium 8.8 mg/dl (8.6-10.3) 04/09/24 05:48 SARS-CoV-2, RNA, NAAT NEGATIVE (NEGATIVE) 04/08/24 Unknown Blood Type O Positive 04/08/24 07:02 Antibody Screen NEGATIVE 04/08/24 07:02 Impressions Pelvis X-Ray 04/08/24 10:59 XR pelvis 1-2V routine HISTORY: 78 years-old Male In PACU - Post Surgical COMPARISON: Pelvis radiograph of same day at 10:25 AM TECHNIQUE: AP view of the pelvis FINDINGS: Right hip arthroplasty demonstrates satisfactory alignment. Expected postoperative soft tissue swelling and deep tissue air. Mild left hip osteoarthritis. No acute fracture or dislocation identified. 6 mm linear metallic density focus projects over the right greater trochanter. IMPRESSION: 1. Satisfactory alignment of the right hip arthroplasty. 2. Indeterminate 6 mm metallic density focus projects over the greater trochanter. ACT 112: Negative or not required by law. The above report was generated using voice recognition software. It may contain grammatical, syntax or spelling errors. Electronically signed by: Azeem Sawyer M.D. 04/08/2024 11:46 AM
--- NOTE | 2024-04-09 09:55 | Discharge Summary ---
Date of Service April 09, 2024 Admission HPI Per Admitting Provider History of Present Illness (including history relevant to procedure): This 78-year-old male inmate from [facility] presents to the clinic today for his preoperative history and physical. Patient complains of a 5 to 6-year history of significant right hip pain that is localized to his groin and lateral hip. He states his severely affecting his ability to ambulate in a normal fashion. He feels that the range of motion of his hip is very limited as well. Patient states that he is gait abnormality is starting to cause pain in his left leg. He states that he manages his pain with diclofenac sodium. Patient is electing to proceed with surgical intervention at this time. Admission Exam Per Admitting Provider Physical Exam: (relevant to the procedure, including heart and lung evaluation) General: Alert and oriented x 3 with proper grooming and hygiene Eyes: Pupils are equal reactive to light with accommodation. Extraocular movements are intact Throat: Posterior oropharynx is clear with absence of edema, erythema or exudate Cardiac: Regular rate and rhythm with no murmurs or gallops appreciated Lungs: Clear to auscultation throughout with no wheezing, rales or rhonchi Abdomen: Nonobese, nondistended, nontender with NABS Extremities: Right hip flexion is limited to 100 degrees, internal rotation to 0 degrees external rotation to 30 degrees. Straight leg raise test causes discomfort in the groin. Scour and impingement tests are both positive. Patient walks with a significant antalgic gait. Neuro: Cranial nerves II through XII are intact no motor or sensory deficit Skin: Normal in appearance with no open skin areas or discharge Principal Diagnosis Right hip avascular necrosis Discharge Exam Right hip: Outer dressing was removed. Silverlon is clean dry and intact and left in place. Patient is able to easily perform active straight leg raise test. He is able to actively dorsi and plantarflex his foot without issue. His peripheral pulses are 2+. He tolerates light passive hip flexion to 90 degrees and has no discomfort with light passive internal or external hip rotation. He is neurovascularly intact. His quad strength is 4+ out of 5 Discharge Data Allergies Allergy/AdvReac Type Severity Reaction Status Date / Time No Known Drug Allergies Allergy Verified 04/08/24 07:03 Procedures Performed Operation Date: 04/08/24 09:05 Actual Procedures p Right Total Hip Arthroplasty(Right) - Sandoval Cruz MD Hospital Course (1) S/P total hip arthroplasty: Patient had an uneventful overnight stay following right total hip arthroplasty. He will be discharged back to the [facility] today. Instructions for postoperative medications is in his discharge packet. These will be provided by the pharmacy at the [facility]. Total hip precautions were reviewed PT/OT Ice with easy wrap Pain control with p.o. medication DVT prophylaxis with aspirin and JUANCHO stockings Abduction pillow use x 6 weeks Keep Silverlon dressing in place until follow-up Plan is to discharge back to the correctional facility later this morning. Patient will most likely be housed in the [facility] until his 2-week follow-up Follow-up as scheduled If medical staff at the present has questions they should contact our clinic at [phone] Total Time Total Time Spent Total Time Spent (In Minutes): 25 mins Discharge Plan Discharge Items Patient Disposition: Correctional Facility Reason For Visit: Right Hip Osteoarthritis Discharge Diagnosis: Status post right total hip arthroplasty Activity: As commented below Lifting: None Bathing: Keep incision dry Bathing Comment: May shower later today Sexual Activity: Wait until after follow-up appointment Exercise/Sports: Wait until after follow-up appointment Weightbearing: Right weightbearing Weightbearing Comment: As tolerated with walker assistance Non-emergency contact: Primary Care Provider Call non-emergency contact if: you have any medication questions, your pain is not controlled, your temperature is above 101.5, your wound has increased drainage and your wound pain has increased Follow-up/Referrals: PCP,NO [Primary Care Provider] - Diet: Regular Addtl Attending Provider Instructions: Post-operative Instructions Dear Patient and Family/Friends, Before you are discharged from the hospital, it is important to know what to expect when you get home after surgery. To that end, we have created this sheet of discharge instructions which covers many commonly asked questions. Make sure you go through this sheet in its entirety with your nurse before you are discharged. Please note that we will go over the specifics of your surgery and recovery when you return for your first post-operative visit. Sincerely, Dr. Cruz Please provide inmate with a walker to use for the next 2 weeks as well as a cane to use after discontinuing the walker. Medications: 1. Hydrocodone 5/325 mg: Take 1-2 tabs every 6-8 hours as needed for postoperative pain control. Please provide this for the next 4 to 5 days. 2. Diclofenac sodium 100 mg: Resume your regimen of this medication twice daily for the first 30 days postoperatively for pain and inflammation relief. 3. Aspirin 81 mg: Take 1 tablet twice daily for the first 30 days postoperatively for blood clot prevention. Pain Expect to be in a fair amount of pain after surgery. Remember, our goal is not to eliminate your pain, but to make it tolerable. It is a good idea to stay ahead of your pain by taking the medications you were prescribed once you get home. Typically, the pain starts improving 3-7 days after surgery. You should start weaning off the narcotic pain medication (oxycodone, hydrocodone, hydromorphone, morphine) as soon as your pain improves. Please call our office if your pain is not adequately controlled. Ice Ice your operative site at least 5 times a day for 15-30 minutes at a time. Make sure you have a thin cloth between the ice or cooling unit and your skin to prevent núñez bite. This is especially important if you received a nerve block. Continue icing your operative site for the first 5-7 days after surgery, then as needed. Diet/Nausea/Vomiting Start by drinking clear liquids and eating crackers. If you can tolerate this, then you may resume your normal diet. If you feel nauseated or vomit, take Zofran/ondansetron (if prescribed). Please call our office if you have intr actable nausea or vomiting, or, if after hours, you may go to the Emergency Room for help. Constipation Constipation is a common side effect of narcotic pain medication. If you have not had a bowel movement within 2 days after surgery, we recommend purchasing an over the counter laxative such as Milk of Magnesia, Dulcolax, or Miralax from a local pharmacy, and taking it as instructed. Call our clinic if any questions. Nerve block The anesthesia team sometimes places a nerve block to help with post-operative pain control. This results in significant numbness and inability to move the extremity. The nerve block usually wears off in 8-12 hours, but sometimes can last up to 24 hours. Please call our office if you are still unable to move your extremity after 24 hours, unless you received a pain pump to take home. Nerve blocks typically wear off quickly, so start taking pain medication as soon as you start feeling soreness near your surgical site. Weight bearing and Range of Motion. Do not bear any weight through your operative extremity immediately after surgery. If you had upper extremity surgery, do not lift anything with that arm. If you are in a knee brace, keep it locked in place until your follow-up. We will discuss your weight bearing, range of motion, and lifting restrictions in detail at your first post-operative appointment. Continuous Passive Motion (CPM) Machine If you were prescribed a CPM machine, it will start after your first post- operative appointment, at which time we will give you instructions on the range of motion settings and duration of treatment Physical therapy You will be given a prescription for physical therapy or occupational therapy at your first post-operative appointment. Typically, patients start therapy within 1 week of surgery Wound care and showering We will inspect your wound at your first post-operative visit, and may do a dressing change at that time. Most patients will be in a water-proof dressing that is removed 14 days after surgery. It is normal to see some dried blood on the dressing. Do not remove your dressing, paper strips or sutures yourself unless you are given permission. Showering is allowed the day after surgery. Do not scrub or remove any dressings. The wound should not be submerged underwater (i.e. in a bathtub or pool) until 4 weeks after surgery JUANCHO stockings If you were given white stockings, these are to be worn at all times except to shower (on both legs) for the first 2 weeks after surgery. Driving You may not drive while taking narcotic pain medication or while in a cast, splint, sling or brace. You, the patient, need to make the final determination about when you are safe to drive, however, the earliest you may consider driving after surgery is below: Hand/Wrist/Elbow Surgery: 3 days Shoulder Surgery: 2 weeks Hip,/Knee/Ankle Surgery: 4 weeks Fracture repair: 6 weeks Return to Work Your return to work depends on what surgery was done and what type of work you do. Please bring any paperwork your employer needs completed to your first post-operative visit. Also, bring a description of your job duties, as this helps us to understand what risks you may face at work. Travel Avoid long distance travel (greater than 1 hour) in airplanes and cars for the first 6 weeks after surgery. If you must travel, you need to have a Doppler ultrasound done before you travel to rule out a blood clot in your legs. Follow-up You should have a follow-up appointment already scheduled 1-2 days after surgery. If not, please contact our office to make this appointment before you leave the hospital. When to call the office It is normal to have swelling and bruising in the limb that was operated on. This will improve with time. It is also normal to have fevers for the first 2 days after surgery. Reasons you should call your doctor include: Uncontrolled pain; Nausea, vomiting, or constipation that does not improve with medication; Fevers over 101.5, chills, sweats; Drainage or bleeding from the wound; Foul odor; Spreading areas of redness; Any other concerns. Contact Information Please call Dr. Cruz's office at [phone] with any concerns. Pending Studies at Discharge: No Skilled Items Patient informed of condition?: Yes Discharge Level of Care: Other Communicable Disease: No Discharge Prognosis: Stable Lines: None Urinary Catheter: No Medications and DC Order Prescriptions: New aspirin 81 mg Tablet,Delayed Release (Dr/Ec) 81 mg PO BID 30 Days Qty: 60 0RF hydrocodone-acetaminophen 5-325 mg tablet 1 tab PO Q6H MDD 4/day 5 Days Qty: 20 0RF Continued montelukast [Singulair] 10 mg tablet 10 mg PO QPM omeprazole 20 mg tablet,delayed release (DR/EC) 20 mg PO DAILY tamsulosin 0.4 mg capsule 0.4 mg PO DAILY diclofenac sodium 100 mg Tablet Extended Release 24 Hr 100 mg PO BID PRN (Reason: Pain) lidocaine 5 % Ointment 1 applic TOPICAL BID PRN (Reason: Pain) Discharge Orders: Discharge Order (Routine); Ordered 04/09/24 Ordered By: Sharath Branham Admission Data Admit Date/Time: 04/08/24 10:59 Attending Provider: Sandoval Cruz Admit Provider: Sandoval Cruz Primary Care Provider: PCP,ESTEVAN
[2024-04-09 11:19] VITALS: BP 126/65
[2024-04-09] MEDS ORDERED: CeleBREX 200 MG CAP PO SCH (21:00)
== END 2024-04-09 13:07 | DRG 470 ==
LOC: ASU 06:39 → INTOOBSV 10:59 → 3E 10:59